=== PATIENT | female | born 1985 | race Caucasian/White ===

== ENCOUNTER 2019-08-28 11:26 | Emergency (ER) | payer OTHER ==
--- NOTE | 2019-08-28 11:55 | ERPHSYRPT ---
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 pt injured in heavy door at her work at the local [employer]. Occurred: this morning Method of Injury: direct blow Quality: constant, aching Severity of Pain-Max: mild Severity of Pain-Current: mild Extremities Pain Location: wrist: right, hand: right Modifying Factors: Improves With: movement Associated Symptoms: none Allergies/Adverse Reactions: No Known Drug Allergies Allergy (Verified 08/28/19 11:51) Home Medications: No Reportable Medications [No Reported Medications] 08/28/19 [History] - Review of Systems Constitutional: No Symptoms Eyes: No Symptoms Ears, Nose, & Throat: No Symptoms Respiratory: No Symptoms Cardiac: No Symptoms Abdominal/Gastrointestinal: No Symptoms Genitourinary Symptoms: No Symptoms Musculoskeletal: Injury ( right hand and wrist) Skin: No Symptoms Neurological: No Symptoms Psychological: No Symptoms Endocrine: No Symptoms Hematologic/Lymphatic: No Symptoms Immunological/Allergic: No Symptoms All Other Systems: Reviewed and Negative - Past Medical History Pertinent Past Medical History: No Neurological History: No Pertinent History ENT History: No Pertinent History Cardiac History: No Pertinent History Respiratory History: No Pertinent History Endocrine Medical History: No Pertinent History Musculoskeletal History: No Pertinent History GI Medical History: No Pertinent History History: No Pertinent History Psycho-Social History: No Pertinent History Female Reproductive Disorders: No Pertinent History - Past Surgical History Past Surgical History: Yes Neuro Surgical History: No Pertinent History Cardiac: No Pertinent History Respiratory: No Pertinent History Gastrointestinal: Appendectomy Genitourinary: No Pertinent History Musculoskeletal: No Pertinent History Female Surgical History: No Pertinent History - Social History Smoking Status: Never smoker Exposure to second hand smoke: No Drug Use: none Patient Lives Alone: No - Female History Hx Last Menstrual Period: 08/14/2019 Hx Now: No (unsure) - Nursing Vital Signs Nursing Vital Signs: Initial Vital Signs Temperature 98.9 F 08/28/19 11:42 Pulse Rate 89 08/28/19 11:42 Blood Pressure 99/71 08/28/19 11:42 O2 Sat by Pulse Oximetry 96 08/28/19 11:42 Pain Scale Pain Intensity 3 - Physical Exam General Appearance: no apparent distress, alert Eyes, Ears, Nose, Throat Exam: normal ENT inspection, moist mucous membranes Neck Exam: normal inspection, non-tender, supple, full range of motion Cardiovascular/Respiratory Exam: chest non-tender Abdominal Exam: non-tender Back Exam: normal inspection, normal range of motion, No CVA tenderness, No vertebral tenderness Shoulder Exam: normal inspection, non-tender, no evidence of injury, normal ROM Elbow/Forearm Exam: normal inspection, non-tender, no evidence of injury, normal ROM Wrist Exam: normal inspection, no evidence of injury, normal ROM, bone tenderness Hand Exam: normal inspection, no evidence of injury, normal ROM, bone tenderness Neuro/Tendon Exam: normal sensation, normal motor functions, normal tendon functions Mental Status Exam: alert, oriented x 3, cooperative Skin Exam: normal color, warm, dry SpO2 Interpretation: normal SpO2: 96 O2 Delivery: Room Air - Course Nursing assessment & vital signs reviewed: Yes Ordered Tests: Active Orders 24 hr Category Date Time Status HAND (MINIMUM 3 VIEWS) Stat Exams 08/28/19 12:01 Completed WRIST (MIN 3 VIEWS) Stat Exams 08/28/19 12:02 Completed - Progress Progress: unchanged Progress Note: 08/28/19 12:35 xray right wrist/hand-no acute fx or dislocation Counseled pt/family regarding: diagnosis, need for follow-up, rad results - Departure Departure Disposition: Home Clinical Impression: Hand contusion, Wrist contusion Condition: Stable Critical Care Time: No Referrals: LIANA MAHONEY [Primary Care Provider] - Additional Instructions: tylenol and ibuprofen for pain. ice pack 3 times daily for 2 days. follow up with primary doctor for further management
--- NOTE | 2019-08-28 12:25 | XRAY ---
Indication: Pain following injury. Comparison: None 3 views of the right wrist demonstrates normal bones, articulation, and soft tissues.
--- NOTE | 2019-08-28 12:26 | XRAY ---
Indication: Pain following injury. Comparison: None 3 views of the right hand demonstrates normal bones, articulation, and soft tissues.
[2019-08-28 13:04] VITALS: BP 112/72; PULSE 87; O2SAT 94
== END 2019-08-28 12:48 | disposition home or self-care (01) ==
LOC: ED 11:26
DX: S60.221A Contusion of right hand, initial encounter (principal); W22.8XXA Striking against or struck by other objects, initial encounter; Y93.89 Activity, other specified; Y92.148 Other place in prison as the place of occurrence of the external cause; Y99.0 Civilian activity done for income or pay
CPT/HCPCS: 73110; 73130; 99283